=== PATIENT | female | born 2000 | race Caucasian/White ===

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

== ENCOUNTER 2022-04-27 12:18 | Emergency (ER) | payer OTHER, SELFPAY ==
--- NOTE | ~2022-04-27 | XR_ITS ---
EXAMINATION: XR knee LT min 4V DATE: 04/27/2022 12:40 INDICATION: Left knee pain TECHNIQUE: Four views of the left knee were obtained. COMPARISON: None. FINDINGS: Alignment is normal. No fracture or osteochondral lesion. Joint spaces are normal with no e rosions. No joint effusion/synovitis. Soft tissues are unremarkable. IMPRESSION: 1. No acute osseous abnormality. Reviewed, dictated and finalized at location L.
[2022-04-27 12:26] VITALS: BP 130/82; PULSE 73; RESP 16; TEMP 36.8; O2SAT 99
--- NOTE | 2022-04-27 12:56 | ED.LOWEXIN ---
HPI - Extremity Injury (Lower) General Chief Complaint: Extremity Injury, Lower Stated Complaint: left knee injury Time Seen by Provider: 04/27/22 12:56 Source: patient Mode of arrival: ambulatory Limitations: no limitations History of Present Illness HPI Narrative: 22 yo F presents with c/o pain to L knee. States yesterday she was walking down cement stairs that were slick from rain. L knee went backwards causing pt to fall. Since then has not been able to bear full weight on L leg. Walking with limp. States pain to medial aspect with swelling. ROM decreased due to pain. All systems reviewed and negative except as noted above. Related Data Allergies Allergy/AdvReac Type Severity Reaction Status Date / Time No Known Allergies Allergy Verified 08/05/19 17:41 Review of Systems Review of Systems: CONSTITUTIONAL: Denies fever, chills, or sweats. EYES: Denies visual changes, redness, or discharge. ENT: Denies rhinorrhea, congestion, sore throat, or otalgia. CARDIOVASCULAR: Denies chest pain, palpitations, or edema. RESPIRATORY: Denies cough or dyspnea. GASTROINTESTINAL: Denies abdominal pain, nausea, vomiting, or diarrhea. GENITOURINARY: Denies dysuria or hematuria. SKIN: Denies rash or itching. MUSCULOSKELETAL: Reports left knee pain and swelling. NEUROLOGIC: Denies headache, numbness, or weakness. PSYCHIATRIC: Denies anxiety or depression. All other systems reviewed are negative, except as documented in HPI. PMFSH Comments At time of signature, agree with nursing past medical, surgical, social and family history. There is no relevant family history pertinent to the presenting complaint. Exam Narrative: GENERAL: This is a well-nourished, well-developed patient, in no apparent distress. HEAD: normocephalic, atraumatic. EYES: PERRL. Sclera clear/white. Vision is grossly intact. EARS: External ears normal NOSE: External nose normal NECK: Neck supple, non-tender without lymphadenopathy, masses or thyromegaly. CARDIOVASCULAR: Regular rate and rhythm without murmurs, gallops, or rubs. RESPIRATORY: Clear to auscultation. Breath sounds equal bilaterally. No wheezes, rales, or rhonchi. SKIN: warm, Dry, intact with no suspicious lesions or rash, good texture and turgor. NEURO: awake, alert, and oriented to person, place and time. There were no obvious focal neurologic abnormalities. EXTREMITIES: No joint tenderness, effusion, or edema noted. tenderness to medial aspect L knee. mild swelling noted. neg anterior/posterior drawer. no instability noted. BACK: Nontender without deformity. Course Course Level of Care: Express Care Visit Vital Signs Vital signs: Vital Signs Temperature 36.8 C 04/27/22 12:26 Pulse Rate 73 04/27/22 12:26 Respiratory Rate 16 04/27/22 12:26 Blood Pressure 130/82 04/27/22 12:26 Pulse Oximetry 99 04/27/22 12:26 Oxygen Delivery Room Air 04/27/22 12:26 Temperature 36.8 C 04/27/22 12:26 Pulse Rate 73 04/27/22 12:26 Respiratory Rate 16 04/27/22 12:26 Blood Pressure 130/82 04/27/22 12:26 Pulse Oximetry 99 04/27/22 12:26 Oxygen Delivery Room Air 04/27/22 12:26 Reviewed MDM - Extremity Injury (Lower) MDM Narrative Medical decision making narrative: Patient is aware of diagnosis, understands and agrees to treatment plan. Anticipatory guidance given. Patient agrees to follow-up as directed and is aware of reasons to seek care at the emergency department. Portions of this record may have been created with voice recognition software discussed xray results with pt. neg for fracture. recommend follow up with PCP in 2 to 3 wks if pain not improving for further evaluation with outpatient imaging. Differential Diagnosis Differential diagnosis: Likely acute internal derangement of knee and other (Left knee sprain) Imaging Data My impression: agree with radiologist Radiologist's impression: EXAMINATION: XR knee LT min 4V DATE: 04/27/2022 12:40 INDICATION: Le
== END 2022-04-27 13:18 | disposition home or self-care (01) ==
PROVIDERS: Emergency Provider Nurse Practitioner Family; PCP Pediatrics
DX: S83.92XA Sprain of unspecified site of left knee, initial encounter (principal); W10.9XXA Fall (on) (from) unspecified stairs and steps, initial encounter
CPT/HCPCS: 73564; 99213; G0463

== ENCOUNTER 2025-08-03 08:30 | Emergency (ER) | payer OTHER, SELFPAY ==
--- NOTE | 2025-08-03 08:44 | ED_ITS ---
HPI - URI/Sore Throat General Chief Complaint: Upper Respiratory Infection Stated Complaint: Throat Hurting Time Seen by Provider: 08/03/25 08:47 Source: patient, RN notes reviewed and old records reviewed Mode of arrival: ambulatory Limitations: no limitations History of Present Illness HPI Narrative: 25 year old female who presents to [facility] care with complaints of sore throat which hurts to swallow for the past 2 days.Patient reports that she did take some Ibuprofen when symptoms first started. Patient reports that she has had history of strep throat in the past. Patient denies any ear pain, cough or any known fevers or chills. Is able to swallow fluids but eating of solids has been difficult due to pain. MD elicited complaint: cough and sore throat Pertinent past history: other (strep throat) Onset (ago): day(s) (2) Severity: moderate Pain scale (0-10): 8 Able to tolerate fluids by mouth: Yes Treatments prior to arrival: ibuprofen Related Data Allergies Allergy/AdvReac Type Severity Reaction Status Date / Time No Known Allergies Allergy Verified 08/03/25 08:45 Review of Systems Review of Systems: CONSTITUTIONAL: Denies malaise, chills, sweats, or fever. EYES: Denies visual changes, redness, or discharge. ENT: Reports no rhinorrhea, congestion, sinus pain, no otalgia and positive sore throat. CARDIOVASCULAR: Denies chest pain, palpitations, or edema. RESPIRATORY: Reports no cough.? Denies dyspnea. GASTROINTESTINAL: Denies abdominal pain, nausea, vomiting, diarrhea SKIN: Denies rash or itching. MUSCULOSKELETAL: Denies myalgia. NEUROLOGIC: Denies headache. All systems reviewed & are unremarkable except as noted in HPI and below PMFSH Past Medical History Medical History Strep throat Surgical History Surgical History No history of previous surgery Social History Social History Smoking status: Never smoker Alcohol intake: current Alcohol use details: social Substance use type: does not use Living arrangements: with family Gender identity (if verbalized by the patient): Female Comments At time of signature, agree with nursing past medical, surgical, social and family history. There is no relevant family history pertinent to the presenting complaint Exam Narrative: GENERAL: Well-appearing, well-nourished, and in no acute distress. HEAD: Normocephalic EYES: PERRLA, conjunctivae clear ENT: Nares clear, turbinates edematous and erythematous, clear discharge. Mucous membranes moist. TM pearly zendejas with dull light reflex bilaterally; no tragal tenderness. Oropharynx erythematous without lesions. Tonsils red and enlarged and without exudate, no drooling, no hoarseness, no trismus, uvula midline. NECK: Supple. positive for lymphadenopathy CHEST: Clear to auscultation, breath sounds equal. No wheezing, rhonchi, rales, or stridor. No respiratory distress, speaks in full sentences. no cough noted SAO2 98% on room air HEART: Regular rate and rhythm. No murmur heard. SKIN: Warm, dry, no rash. NEURO: Alert and oriented x3. PSYCH: Normal mood and affect Course Course Emergency Course: Patient is aware of diagnosis, understands and agrees to treatment plan.? Anticipatory guidance given.? Patient agrees to follow-up as directed and is aware of reasons to seek care at the emergency department. Portions of this record may have been created with voice recognition software Level of Care: Express Care Visit Vital Signs Vital signs: Vital Signs Temperature 36.3 C L 08/03/25 08:45 Pulse Rate 104 H 08/03/25 08:45 Respiratory Rate 18 08/03/25 08:45 Blood Pressure 143/79 H 08/03/25 08:45 Pulse Oximetry 98 08/03/25 08:45 Oxygen Delivery Room Air 08/03/25 08:45 Temperature 36.3 C L 08/03/25 08:45 Pulse Rate 104 H 08/03/25 08:45 Respiratory Rate 18 08/03/25 08:45 Blood Pressure 143/79 H 08/03/25 08:45 Pulse Oximetry 98 08/03/25 08:45 Oxygen Delivery Room Air 08/03/25 08:45 Reviewed MDM - URI/Sore Throat MDM Narrative Medical decision making narrative: Differential diagnosis considered: Payne virus, strep pharyngitis, allergic rhinitis, upper respiratory tract infection, sinusitis, rhinosinusitis, nasopharyngitis. viral pharyngitis, otitis media, otitis externa, pneumonia, bronchitis, viral cough syndrome, viral syndrome, and influenza.? Exam findings show no acute concerns or changes; patient is non-toxic appearing and is in no distress.? Patient is appropriate for outpatient treatment and follow-up. Differential Diagnosis Differential diagnosis: Likely upper respiratory infection, sinusitis, viral infection, pharyngitis and other (strep pharyngitis) Medical Records Attestation: I reviewed the patient's medical records. Lab Data Attestation: I reviewed the patient's lab results. Lab results narrative: strep screen positive Labs: Lab Results 08/03/25 Range/Units 08:51 POC Grp A Strep Screen Positive (Negative) reviewed Critical Care Time Critical Care Time Critical Care Time: No Discharge Plan Discharge Clinical Impression: Strep throat Patient Disposition: Home Condition: Stable Instructions: Antibiotic Form, Strep Throat (ED) Additional Instructions: You tested positive for Group A strep . Take the entire course of antibiotics. Throw away your current toothbrush and begin using a new toothbrush in 48 hours in order to prevent re-infection. Sanitize all reusable water bottles . Do not share items with others. Salt water gargles may alleviate some of the throat discomfort. You can take Tylenol or ibuprofen per the package instructions for pain/fever. If your symptoms persist, change or worsen significantly before you can contact your personal physician then please, without delay, go to the emergency department for further evaluation. Follow-up with PCP in 7-10 days or sooner if needed Follow up with PCP soon in regards to your blood pressure which is elevated above threshold for referral. Blood pressure above 120/80 may indicate pre-hypertension. 143/79 Patient Language: Syriac Prescriptions: New amoxicillin 500 mg capsule 1,000 mg PO Q12H 10 Days Qty: 40 0RF Follow-up/Referrals: PHYSICIAN,WINDOW CLEANER [Primary Care Provider, Internal Medicine] Stand Alone Forms: Work/School Release IP Time of Disposition: 08:59 Quality [place]vinson Coma Scale Eyes: Open Verbal: Oriented and Alert Motor: Follows Commands Robby Coma Total Score: 15
[2025-08-03 08:45] VITALS: BP 143/79; PULSE 104; RESP 18; TEMP 36.3; O2SAT 98
[2025-08-03 08:52] LABS: EDSTREPNEGPOS1 Positive (Negative)
--- OUTSIDE RECORDS SUMMARY | 2025-08-03 08:53 | XMS_ITS | Clinical Summary ---
Author Organization [facility] Address [address] [place] [address] Phone Care Team Providers Care Eeg Technologist Name Role Phone Fatou Starks MD Primary Care Provider Allergies No known active allergies Medications No known medications Social History Tobacco Use Types Packs/Day Years Used Date Smoking Tobacco: Never Smokeless Tobacco: Never Alcohol Use Standard Drinks/Week Comments No 0 (1 standard drink = 0.6 oz pur e alcohol) Comments No Sex and Gender Information Value Date Recorded Sex Assigned at Not on file Legal Sex Female 8:39 PM CDT Gender Identity Not on file Sexual Orientation Not on file Last Filed Vital Signs Vital Sign Reading Time Taken Comments Blood Pressure 154/84 02/28/2018 8:58 PM CDT Pulse 92 02/28/2018 8:58 PM CDT Temperature 37.1 C (98.8 F) 02/28/2018 8:58 PM CDT Respiratory Rate 16 02/28/2018 8:58 PM CDT Oxygen Saturation 99% 02/28/2018 8:58 PM CDT Inhaled Oxygen Concentration - - Weight - - Height 162.6 cm (5' 4) 02/28/2018 8:58 PM CDT Body Mass Index - - Plan of Treatment Upcoming Encounters Date Type Department Care Team (Late st Contact Info) Description 08/12/2025 1:30 PM ANIMAL HUSBANDRY MANAGER Office Visit [facility] - Cardiology - [place] [address] [place] [address] Charisma Bueno, ASSOCIATE MATERIAL HANDLER, [employer]AY [employer]IT [employer] [address] [place] [address] 10/04/2025 3:00 PM ANIMAL HUSBANDRY MANAGER Office Visit [facility] - Pulmonology & Sleep Medicine - [place] [address] [place] [address] Orin Fletcher APRN, [employer] [address] [place] [address] Insurance MEDICAID [facility] [facility] Care Teams Eeg Technologist Relationship Specialty Start Date End Date Fatou Starks MD [address] [place] [address] PCP - General General Surgery 07/22/25
--- OUTSIDE RECORDS SUMMARY | 2025-08-03 08:53 | XMS_ITS | Clinical Summary ---
Author Organization [facility] Address [address] [place] [address] Care Team Providers Care Direct Support Staff Member Name Role Phone Nay Sahu MD Primary Care Provider [phone] Allergies No known active allergies Medications lidocaine viscous (XYLOCAINE) 2 % solution Take 10 mL by mouth every 3 (three) hours 10 mL 05/03/2021 Active traMADoL (ULTRAM) 50 mg tablet Take 1 tablet (50 mg total) by mouth every 4 (four) hours as needed for pain 20 tablet 05/03/2021 Active Active Problems No known active problems Encounters Date Type Department Care Team Description 06/29/2025 9:34 AM CDT - 06/29/2025 11:59 PM CDT Hospital Encounter [facility] [address] [place] [id number] Morbid (severe) obesity due to excess calories (HCC) Discharge Disposition: Discharge to home or self care 06/29/2025 9:29 AM CDT - 06/29/2025 11:59 PM CDT Hospital Encounter [facility] [address] [place] [id number] Morbid (severe) obesity due to excess calories (HCC) Discharge Disposition: Discharge to home or self care 06/29/2025 9:25 AM CDT Lab [address] [address] from Last 3 Months Surgical History Surgery Date Site/Laterality Comments NO PAST SURGERIES Medical History Medical History Date Comments Obesity Marijuana use Social History Tobacco Use Types Packs/Day Years Used Date Smoking Tobacco: Never Smokeless Tobacco: Never Tobacco Cessation:Counseling Given: Not Answered Comments No Sex and Gender Information Value Date Recorded Sex Assigned at Not on file Legal Sex Female 11:40 AM CLASSROOM AIDE Gender Identity Not on file Sexual Orientation Not on file Last Filed Vital Signs Vital Sign Reading Time Taken Comments Blood Pressure 143/86 08/19/2022 9:29 PM CLASSROOM AIDE Pulse 113 08/19/2022 9:29 PM CLASSROOM AIDE Temperature 37 C (98.6 F) 08/19/2022 9:29 PM CLASSROOM AIDE Respiratory Rate 19 08/19/2022 9:29 PM CLASSROOM AIDE Oxygen Saturation 98% 08/19/2022 9:29 PM CLASSROOM AIDE Inhaled Oxygen Concentration - - Weight 111.6 kg (246 lb) 08/19/2022 9:29 PM CLASSROOM AIDE Height 162.6 cm (5' 4) 08/19/2022 9:29 PM CLASSROOM AIDE Body Mass Index 42.23 08/19/2022 9:29 PM CLASSROOM AIDE Plan of Treatment Health Maintenance Due Date Last Done Comments Cervical Cancer Screening 2002 Depression Screening 2002 Hepatitis C Screening 2002 Regular Well Visit/Exam 18-64 02/21/2020 Influenza Vaccine (#1) 2025 8, 07/03/2017, 10/03/2016, Additional history exists DTaP/Tdap/Td Vaccine (8 - Td or Tdap) 03/04/2026 03/04/2016, 03/10/2012, 06/04/2007, Additional history exists Hepatitis B Screening Completed 2002 , 2002, 2002 Pneumococcal vaccine <65 Completed 004, 03/12/2003, 2002, Additional history exists Varicella Vaccines Completed 06/04/2007, 10/07/2003 HPV Vaccines Completed 03/10/2012, 0805/2011, 03/01/2011 Meningococcal B Vaccine Completed 11/14/2018, 10/03 Procedures Procedure Name Priority Date/Time Associated Diagnosis Comments XR CHEST PA LATERAL 2 VIEWS Schedule Routine, Read Routine (OP Routine) 06/29/2025 10:17 AM CDT Morbid (severe) obesity due to excess calories (HCC) ECG 12-LEAD Routine 06/29/2025 10:07 AM CDT Morbid (severe) obesity due to excess calories (HCC) EGFR Routine 06/29/2025 9:46 AM CDT DIFFERENTIAL AUTO Routine 06/29/2025 9:4 6 AM CDT TRANSFERRIN Routine 06/29/2025 9:46 AM CDT IRON PROFILE W/ IBC Routine 06/29/2025 9 :46 AM CDT APTT Routine 06/29/2025 9:46 AM CDT PROTIME-INR Routine 06/29/2025 9:46 AM CDT PTH Routine 06/29/2025 9:46 AM CDT TSH Routine 06/29/2025 9:46 AM CDT VITAMIN B1 Routine 06/29/2025 9:46 AM CDT FOLATE Routine 06/29/2025 9:46 AM CDT VITAMIN B12 Routine 06/29/2025 9:46 AM CDT VITAMIN D 25 HYDROXY Routine 06/29/2025 9:46 AM CDT MAGNESIUM Routine 06/29/2025 9:46 AM CDT LIPID PANEL Routine 06/29/2025 9:46 AM CDT HEMOGLOBIN A1C Routine 06/29/2025 9:46 AM CDT FERRITIN Routine 06/29/2025 9:46 AM CDT COMPREHENSIVE METABOLIC PANEL Routine 06/29/2025 9:46 AM CDT CBC WITH AUTO DIFFERENTIAL Routine 06/29/2025 9:46 AM CDT from Last 3 Months Results * XR Chest PA Lateral 2 Views (06/29/2025 10:17 AM CDT) Anatomical Region Laterality Modality Body, Chest N/A Computed Radiogr aphy 07/03/2025 3:23 AM CDT Narrative 07/03/2025 3:24 AM CDT EXAM DESCRIPTION: XR CHEST PA LATERAL 2 VIEWS REASON FOR STUDY: E66. Pre op for gastric sleeve surgery Htn - not medicated former smoker Intermittent chest pain TECHNIQUE: Frontal and lateral radiographic views of the chest acquired. COMPARISON: Chest x-ray of December 19, 2022. FINDINGS: LUNGS/PLEURA: No focal consolidation or pneumothorax. No pleural effusion. HEART/MEDIASTINUM: Cardiac silhouette is normal. Remaining mediastinal silhouettes are unremarkable. HARDWARE/LINES/TUBES: None. BONES: No acute findings. IMPRESSION: No acute cardiopulmonary abnormality. THIS IS AN ELECTRONICALLY VERIFIED FINAL REPORT 07/03/2025 3:24 AM - Electronically signed by Savi Barrios M.D. SN: SN Report ID: [id number] Reading Location: [id number] Procedure Note Savi Barrios MD - 07/03/2025 EXAM DESCRIPTION: XR CHEST PA LATERAL 2 VIEWS REASON FOR STUDY: E66.01 Pre op for gastric sleeve surgery Htn - not medicated former smoker Intermittent chest pain TECHNIQUE: Frontal and lateral radiographic views of the chest acquired. COMPARISON: Chest x-ray of December 19, 2022. FINDINGS: LUNGS/PLEURA: No focal consolidation or pneumothorax. No pleuraleffusion. HEART/MEDIASTINUM: Cardiac silhouette is normal. Remaining mediastinal silhouettes are unremarkable. HARDWARE/LINES/TUBES: None. BONES: No acute findings. IMPRESSION: No acute cardiopulmonary abnormality. THIS IS AN ELECTRONICALLY VERIFIED FINAL REPORT 07/03/2025 3:24 AM - Electronically signed by Savi Barrios M.D. SN: SN Report ID: [id number] Reading Location: [id number] [facility] WALLPAPERER IMG XR PROCEDURES Final Resul t * ECG 12 lead (06/29/2025 10:07 AM CDT) 06/29/2025 10:0 4 AM CDT Narrative [facility] - 06/29/2025 12:02 PM CDT Vent Rate: 77 bpm RR Interval: 775 msec OR Interval: 167 msec QRS Duration: 86 msec QT Interval: 395 msec QTC Interval: 427 msec P-R-T [place]: 37 - 32 - 38 degrees IMPRESSION: SINUS RHYTHM WITH FREQUENT VENTRICULAR PREMATURE COMPLEXES ABNORMAL RHYTHM ECG Compared to prior EKG premature ventricular ectopic beats are new Electronically Signed By: Alvarado Florentino MD [facility] us My [facility] NP ECG ORDERABLES Final Result Performing Organization Address [facility] Co de Phone Number [facility] * eGFR (06/29/2025 9:46 AM CDT) eGFR >90 >=60 mL/min/1. 73 m2 Comment: Interpretive Data Reference Interval Normal >/= 90 mL/min/1.73m2 Mildly decreased* 60 - 89 mL/min/1.73m2 Mildly to moderately decreased 45 - 59 mL/min/1.73m2 Moderately to severely decreased 30 - 44 mL/min/1.73m2 Severely decreased 15 - 29 mL/min/1.73m2 Kidney Failure < 15 mL/min/1.73m2 *Relative to young adult level Estimated glomerular filtration rate is determined by the 2020 CKD-EPI equation recommended by the National Kidney Foundation (A Unifying Approach to GFR Estimation: Recommendations of the NKF-ASK Task Force on Reassessing the Inclusion of Race in Diagnosing Kidney Disease, JASN 2020). The CKD-EPI equation should not be used for patients with unstable renal function and has not been validated in children and those over 70. Current interpretive data was last reviewed 2021. Blood 06/29/2025 9:46 AM CDT 06/29/2025 10:20 AM CDT us My [facility] NP LAB BLOOD ORDERABLES Final Re sult Performing Organization Address City/[facility] Co de Phone Number MARIUSZ RUBIO ([place]) 1 [facility] [place] [address] * (ABNORMAL) Differential, auto (06/29/2025 9:46 AM CDT) Neutrophil abs 4.05 1.50 - 6.50 K/cumm Imm gran abs 0.01 0.00 - 0.10 K/cumm [facility] ([place]) Lymphocyte abs 4.86(H) 0.80 - 3.30 K/cumm [facility] ([place]) Monocyte abs 0.61 0.20 - 0.80 K/cumm [facility] ([place]) Eosinophil abs 0.22 0.00 - 0.50 K/cumm [facility] ([place]) Basophil abs 0.03 0.00 - 0.10 K/cumm [facility] ([place]) Neutrophil pct 41.5 % [facility] ([place]) Comment: Interpretive Data Percent cell count reference ranges are not reported, since discordance with absolute values may lead to misinterpretation of CBC data. Current Interpretive Data was last revised on 2018. Imm gran pct 0.1 % [facility] ([place]) Comment: Interpretive Data Percent cell count reference ranges are not reported, since discordance with absolute values may lead to misinterpretation of CBC data. Current Interpretive Data was last revised on 2018. Lymphocyte pct 49.7 % [facility] ([place]) Comment: Interpretive Data Percent cell count reference ranges are not reported, since discordance with absolute values may lead to misinterpretation of CBC data. Current Interpretive Data was last revised on 2018. Monocyte pct 6.2 % [facility] ([place]) Comment: Interpretive Data Percent cell count reference ranges are not reported, since discordance with absolute values may lead to misinterpretation of CBC data. Current Interpretive Data was last revised on 2018. Eosinophil pct 2.2 % [facility] ([place]) Comment: Interpretive Data Percent cell count reference ranges are not reported, since discordance with absolute values may lead to misinterpretation of CBC data. Current Interpretive Data was last revised on 2018. Basophil pct 0.3 % [facility] ([place]) Comment: Interpretive Data Percent cell count reference ranges are not reported, since discordance with absolute values may lead to misinterpretation of CBC data. Current Interpretive Data was last revised on 2018. Blood 06/29/2025 9:46 AM CDT 06/29/2025 10:20 AM CDT us My [facility] WALLPAPERER LAB BLOOD ORDERABLES Final Re sult Performing Organization Address [facility] Co de Phone Number MARIUSZ RUBIO ([place]) [address] [place] [address] * (ABNORMAL) Iron profile w/ IBC (06/29/2025 9:46 AM CDT) Pathologist [facility] Iron 29(L) 35 - 145 mcg/dL [facility] ([place]) TIBC 306 250 - 400 mcg/dL [facility] ([place]) Transferrin saturation 9(L) 20 - 50 % [facility] ([place]) Blood 06/29/2025 9:46 AM CDT 06/29/2025 10:20 AM CDT us My [facility] WALLPAPERER LAB BLOOD ORDERABLES Final Re sult Performing Organization Address [facility] de Phone Number MARIUSZ RUBIO ([place]) [address] [place] [address] * CBC with auto differential (06/29/2025 9:46 AM CDT) Pathologist [facility] WBC 9.78 3.80 - 9.90 K/cumm Hgb 13.2 11.9 - 15.5 g/dL [facility] ([place]) Hct 39.8 35.6 - 45.5 % [facility] ([place]) Plt 293 150 - 400 K/cumm [facility] ([place]) MPV 9.6 9.1 - 12.3 fL [facility] ([place]) RBC 4.63 3.90 - 5.20 M/cumm [facility] ([place]) MCV 86.0 81.3 - 96.4 fL [facility] ([place]) MCH 28.5 27.1 - 33.3 pg [facility] RUBIO ([place]) MCHC 33.2 32.3 - 35.7 g/dL [facility] RUBIO ([place]) RDW CV 12.8 11.1 - 14.9 % [facility] RUBIO ([place]) RDW SD 40.2 35.7 - 48.1 fL [facility] RUBIO ([place]) NRBC abs 0.00 0.00 - 0.01 K/cumm [facility] RUBIO ([place]) Blood 06/29/2025 9:46 AM CDT 06/29/2025 10:20 AM CDT us [facility] WALLPAPERER LAB BLOOD ORDERABLES Final Re sult MARI[facility]Z RUBIO ([place]) 1 [facility] [place] [employer] [place] [address] * (ABNORMAL) Vitamin D 25 hydroxy (06/29/2025 9:46 AM CDT) Vitamin D 25-OH 10(L) 30 - 80 ng/mL [facility] RUBIO ([place]) Blood 06/29/2025 9:46 AM CDT 06/29/2025 10:20 AM CDT us [facility] WALLPAPERER LAB BLOOD ORDERABLES Final Re sult Performing Organization Address City/[facility]/ZIP Co de Phone Number MARIUSZ RUBIO ([place]) 1 [facility] [place] [address] * aPTT (06/29/2025 9:46 AM CDT) aPTT 30 26 - 38 sec MARI[facility] RUBIO ([place]) Comment: Interpretive Data Heparin therapeutic range: 66.0 - 100.0 seconds. Range based on correlation with therapeutic heparin activity range of 0.3 - 0.7 Units/mL. Current interpretive data was last revised on 2023. Blood 06/29/2025 9:46 AM CDT 06/29/2025 10:20 AM CDT us My [facility] WALLPAPERER LAB BLOOD ORDERABLES Final Re sult [place]Z [place] 1 [facility] [place] [employer] [place] [address] * Protime-INR (06/29/2025 9:46 AM CDT) PT 10.4 10.2 - 13.5 sec [facility] ([place]) INR 0.92 0.90 - 1.20 MARI[facility]Z [facility] ([place]) Comment: Interpretive data Oral anticoagulant therapeutic ranges: Venous thromboembolism prophylaxis or treatment: 2.0-3.0 CARDIOLOGY Standard range: 2.0-3.0 High-intensity range: 2.5-3.5 Refer to indication-specific guidelines for appropriate target ranges for prosthetic heart valve replacement. Current interpretive data was last revised on 2019. Blood 06/29/2025 9:46 AM CDT 06/29/2025 10:20 AM CDT us My [facility] WALLPAPERER LAB BLOOD ORDERABLES Final Re sult Performing Organization Address [facility] Co de Phone Number MARIUSZ RUBIO ([place]) 1 [facility] [employer] [place] [address] * Transferrin (06/29/2025 9:46 AM CDT) Transferrin 257 200 - 360 mg/dL Comment:Testing performed by : [facility], [address] [place] [address], [id number] Blood 06/29/2025 9:46 AM CDT 06/29/2025 4:58 PM CDT us My [facility] WALLPAPERER LAB BLOOD ORDERABLES Final Re sult Performing Organization Address City/[facility]/ZIP Co de Phone Number MARIUSZ RUBIO ([place]) 1 [facility] [employer] [place] [address] * TSH (06/29/2025 9:46 AM CDT) Thyroid Stimulating Hormone 1.67 0.30 - 4.20 mcIUnit/mL [facility] ([place]) Blood 06/29/2025 9:46 AM CDT 06/29/2025 10:20 AM CDT My [facility] WALLPAPERER LAB BLOOD ORDERABLES Final Re sult Performing Organization Address [facility]/ZIP Co de Phone Number MARIUSZ RUBIO ([place]) 1 [facility] [place] [address] * Vitamin B1 (06/29/2025 9:46 AM CDT) Pathologist [facility] Thiamine (Vit B1) 115 70 - 180 nmol/L [place] [facility] Comment: ADDITIONAL INFORMATION This test was developed and its performance characteristics determined by [facility] in a manner consistent with CLIA requirements. This test has not been cleared or approved by the U.S. Food and Drug Administration. Test Performed by: [facility] [place] [address] Grain Packer: Shlomo Lange Ph.D.; CLIA# [id number] Blood 06/29/2025 9:46 AM CDT 06/29/2025 10:20 AM CDT us My [facility] WALLPAPERER LAB BLOOD ORDERABLES Final Re sult Performing Organization Address [facility]/ZIP Co de Phone Number MARIUSZ RUBIO ([place]) 1 [facility] [employer] [place] [place] [address] [place] [facility] * (ABNORMAL) PTH (06/29/2025 9:46 AM CDT) PTH 64(H) 18 - 58 pg/mL [facility] ([place]) Blood 06/29/2025 9:46 AM CDT 06/29/2025 10:20 AM CDT us [facility] WALLPAPERER LAB BLOOD ORDERABLES Final Re sult MARI[facility] RUBIO ([place]) [address] [place] [address] * Magnesium (06/29/2025 9:46 AM CDT) Magnesium 2.2 1.4 - 2.5 mg/dL [facility] RUBIO ([place]) Blood 06/29/2025 9:46 AM CDT 06/29/2025 10:20 AM CDT us My [facility] WALLPAPERER LAB BLOOD ORDERABLES Final Re sult Performing Organization Address [facility] Co de Phone Number MRAIUSZ RUBIO ([place]) [address] [place] [address] * Hemoglobin A1c (06/29/2025 9:46 AM CDT) Hgb A1C 5.6 4.0 - 5.6 % [facility] ([place]) Estimated Average Glucose 114 mg/dL [facility] ([place]) Comment: The ADA recommends reporting an estimated Average Glucose (eAG) with all Hemoglobin A1c results using the equation derived from a study of 507 normal and diabetic adults. Minority populations were underrepresented and children were not included. (Diabetes Care 31:1570-1279, 2008). The eAG is not equivalent to a fasting glucose. Testing performed by: [facility], [address] [facility], [place], [address] Blood 06/29/2025 9:46 AM CDT 06/29/2025 10:20 AM CDT us My [facility] WALLPAPERER LAB BLOOD ORDERABLES Final Re sult MARI[facility] RUBIO ([place]) [address] [place] [address] * Folate (06/29/2025 9:46 AM CDT) Folic acid 9.4 >=5.0 ng/mL [facility] ([place]) Blood 06/29/2025 9:46 AM CDT 06/29/2025 10:20 AM CDT us [facility] WALLPAPERER LAB BLOOD ORDERABLES Final Re sult MARIUSZ RUBIO ([place]) 1 [facility] [place] [place] [address] * Ferritin (06/29/2025 9:46 AM CDT) Ferritin 27 13 - 150 ng/mL [facility] RUBIO ([place]) Blood 06/29/2025 9:46 AM CDT 06/29/2025 10:20 AM CDT us My [facility] WALLPAPERER LAB BLOOD ORDERABLES Final Re sult Performing Organization Address [facility]/ZIP Co de Phone Number MARIUSZ URBIO ([place]) 1 [facility] [place] [address] * Vitamin B12 (06/29/2025 9:46 AM CDT) Pathologist [facility] Vitamin B12 438 230 - 1,250 pg/mL MARI[facility]Z RUBIO ([place]) Blood 06/29/2025 9:46 AM CDT 06/29/2025 10:20 AM CDT us [facility] WALLPAPERER LAB BLOOD ORDERABLES Final Re sult MARIUSZ RUBIO ([place]) 1 [facility] [place] [address] * Lipid panel (06/29/2025 9:46 AM CDT) Pathologist [facility] Cholesterol 148 30 - 199 mg/dL MARIUSZ RUBIO ([place]) Comment: Interpretive Data Ages < or = 19 years Acceptable: <170 mg/dL Borderline high: 170-199 mg/dL High: >or= 200 mg/dL Ages > or = 20 years Desirable: <200 mg/dL Borderline high: 200-239 mg/dL High: >or= 240 mg/dL Literature References: 1. Expert Panel on Integrated Guidelines for Cardiovascular Health and Risk Reduction in Children and Adolescents. Pediatrics 2011;128:S213 2. NCEP Expert Panel. Circulation 2004;110:227 Current Interpretive Data was last revised on 2018. Triglycerides 126 <=149 mg/dL MARIUSZ WAGNER) Comment: Interpretive Data Ages < or = 9 years Acceptable: <75 mg/dL Borderline high: 75-99 mg/dL High: >or= 100 mg/dL Ages 10 to 20 years Acceptable: <90 mg/dL Borderline high: 90-129 mg/dL High: >or= 130 mg/dL Ages > or = 20 years Desirable: <150 mg/dL Borderline high: 150-199 mg/dL High: 200-499 mg/dL Very high: >or= 499 mg/dL Literature References: 1. Expert Panel on Integrated Guidelines for Cardiovascular Health and Risk Reduction in Children and Adolescents. Pediatrics 2011;128:S213 2. NCEP Expert Panel. Circulation 2004;110:227 Current Interpretive Data was last revised on 2018. HDL 44 >=40 mg/dL MARIUSZ WAGNER) Comment: Interpretive Data Ages < or = 19 years Acceptable: >45 mg/dL Borderline low: 40-45 mg/dL Low: <40 mg/dL Ages > or = 20 years Desirable: >or= 60 mg/dL Low: <40 mg/dL Literature References: 1. Expert Panel on Integrated Guidelines for Cardiovascular Health and Risk Reduction in Children and Adolescents. Pediatrics 2011;128:S213 2. NCEP Expert Panel. Circulation 2004;110:227 Current Interpretive Data was last revised on 2018. LDL, calculated 82 <=129 mg/dL MARIUSZ WAGNER) Comment: Interpretive Data Ages < or = 19 years Acceptable: <110 mg/dL Borderline high: 110-129 mg/dL High: >or= 130 mg/dL Ages > or = 20 years Optimal: <100 mg/dL Near optimal: 100-129 mg/dL Borderline high: 130-159 mg/dL High: >160 mg/dL Calculated using the Dubose LDL-C estimating equation. This equation was implemented on 2024. Prior to this date LDL-C was estimated using the Friedewald equation. Literature References: 1. Expert Panel on Integrated Guidelines for Cardiovascular Health and Risk Reduction in Children and Adolescents. Pediatrics 2011;128:S213 2. NCEP Expert Panel. Circulation 2004;110:227 3. Sedrick López al. LEO Cardiol. 2019January 28;5(5):540-548. doi: 10.1001/jamacardio.2020.0013 Current Interpretive Data was last revised on 2024. Testing performed by: [place], [address] Non-HDL Cholesterol 104 mg/dL MARIUSZ RUBIO ([place]) Comment: Interpretive Data Ages < or = 19 years Acceptable: <120 mg/dL Borderline high: 120-144 mg/dL High: >145 mg/dL Ages > or = 20 years When triglycerides are >200 mg/dL, Non-HDL cholesterol is a secondary target of therapy with treatment goals that are 30 mg/dL greater than the LDL cholesterol target. Literature References: 1. Expert Panel on Integrated Guidelines for Cardiovascular Health and Risk Reduction in Children and Adolescents. Pediatrics 2011;128:S213 2. NCEP Expert Panel. Circulation 2004;110:227 Current Interpretive Data was last revised on 2018. Testing performed by: [place], [address] Chol/HDL ratio 3 JOSSE RUBIO ([place]) Comment:Testing performed by : [place], [address] Blood 06/29/2025 9:46 AM CDT 06/29/2025 10:20 AM CDT us My [facility] NP LAB BLOOD ORDERABLES Final Re sult MARIUSZ RUBIO ([place]) 1 [facility] [place] [address] * Comprehensive metabolic panel (06/29/2025 9:46 AM CDT) Sodium 140 135 - 145 mmol/L MARIUSZ RUBIO ([place]) Potassium, pl 3.8 3.3 - 4.9 mmol/L [facility] ([place]) Chloride 104 97 - 110 mmol/L [facility] ([place]) CO2 26 22 - 32 mmol/L [facility] ([place] Anion gap 10 2 - 15 mmol/L [facility] ([place]) BUN 9 6 - 25 mg/dL [facility] ([place]) Creatinine 0.77 0.60 - 1.10 mg/dL [facility] ([place]) Glucose 88 70 - 199 mg/dL [facility] ([place]) Comment: Interpretive Data Fasting glucose >/= 126 mg/dl is diagnostic for diabetes. Fasting is defined as no caloric intake for at least 8 hours. Fasting glucose between 100 mg/dl to 125 mg/dl is diagnostic of prediabetes. In a patient with classic symptoms of hyperglycemia or hyperglycemic crisis, a random glucose >/= 200 mg/dl is diagnostic for diabetes. In the absence of unequivocal hyperglycemia, results should be confirmed by repeat testing. The classification and Diagnosis of Diabetes Diabetes Care 2021; 46: S19-S40. Current interpretive data was last revised 2022. Calcium 9.4 8.5 - 10.3 mg/dL [facility] ([place]) Bilirubin, total 0.4 0.1 - 1.2 mg/dL [facility] ([place]) Protein, pl 7.2 6.5 - 8.5 g/dL [facility] ([place]) Albumin 4.2 3.5 - 5.0 g/dL [facility] ([place]) Alk phos 82 40 - 130 Units/L [facility] ([place]) ALT 20 7 - 45 Units/L [facility] ([place]) AST 21 10 - 45 Units/L [facility] ([place]) Blood 06/29/2025 9:46 AM CDT 06/29/2025 10:20 AM CDT us [facility] WALLPAPERER LAB BLOOD ORDERABLES Final Re sult [facility] ([place]) 1 [facility] [place] [address] from Last 3 Months Insurance [employer] [facility] [employer] [facility] Care Teams Direct Support Staff Member Relationship Specialty Start Date End Date Nay Sahu MD [address] [place] [address] PCP - General 02/28/20
--- OUTSIDE RECORDS SUMMARY | 2025-08-03 08:53 | XMS_ITS | Encounter Summary ---
Author Organization [facility] Address [address] [place] [address] Care Team Providers Care Fractionating Still Operator Name Role Phone Nay Sahu MD Primary Care Provider [phone] Encounter Details Date Type Department Care Team (Late st Contact Info) Description 07/27/2025 Orders Only [facility] Weight Management Services [address] [place] [phone] My Hayes, INSIDE SALES SUPERVISOR-DRY WALL NAILER [address] [place] [address] Morbid obesity (HCC); Pre-op evaluation; EKG, abnormal Social History Tobacco Use Types Packs/Day Years Used Date Smoking Tobacco: Never Smokeless Tobacco: Never Alcohol Use Standard Drinks/Week Comments Yes 8 (1 standard drink = 0.6 oz pur e alcohol) weekly AUDIT-C Answer Date Recorded Q1: How often do you have a drink containing alcohol? Never 05/15/2023 Q2: How many drinks containi ng alcohol do you have on a typical day when you are drinking? Patient does not drink Q3: How often do you have si x or more drinks on one occasion? Never 05/15/2023 PHQ-2 Answer Date Recorded Patient Health Questionnaire-2 Score 0 07/27/2025 Comments Unknown Sex and Gender Information Value Date Recorded Sex Assigned at Not on file Legal Sex Female 11:58 AM LOOP TACKER Gender Identity Not on file Sexual Orientation Not on file documented as of this encounter Functional Status * Over the past 2 weeks, how often have you been bothered by any of the following problems? Question Answer Date of Assessment Author Little interest or pleasure in doing things Not at all 07/27/2025 8:36 AM CDT Samantha Delong L PN Feeling down, depressed, or hopeless Not at all 07/27/2025 8:36 AM CDT Samantha Delong L PN Patient Health Questionnaire -2 Score 0 07/27/2025 8:36 AM CDT Samantha Delong L PN documented as of this encounter Plan of Treatment Upcoming Encounters Date Type Department Care Team (Late st Contact Info) Description 08/10/2025 3:00 PM LOOP TACKER Office Visit [facility] Weight Management Services [address] [place] [facility] [place] [address] 08/11/2025 11:00 AM LOOP TACKER Office Visit [facility] Weight Management Services [address] [facility] [place] [address] Tita Mcdaniel, INSIDE SALES SUPERVISOR-DRY WALL NAILER [address] [place] [address] 08/11/2025 11:30 AM LOOP TACKER Office Visit [facility] Weight Management Services [address] [place] [facility] [place] [address] 09/22/2025 11:00 AM LOOP TACKER Office Visit [facility] Weight Management Services [address] [facility] [place] [address] 09/22/2025 11:30 AM LOOP TACKER Office Visit [facility] Weight Management Services [address] [facility] [place] [address] My Hayes, INSIDE SALES SUPERVISOR-DRY WALL NAILER [address] [place] [facility] [place] [place] [address] documented as of this encounter Procedures Procedure Name Priority Date/Time Associated Diagnosis Comments EKG 12-LEAD Routine 06/29/2025 Morbid obesity (HCC) Pre-op evaluation EKG, abnormal documented in this encounter Results * EKG 12-Lead (06/29/2025) 06/29/2025 us My Hayes INSIDE SALES SUPERVISOR-DRY WALL NAILER ECG ORDERABLES Final Re sult documented in this encounter Visit Diagnoses Diagnosis Morbid obesity (HCC) Morbid obesity Pre-op evaluation Preoperative examination, unspecified EKG, abnormal Nonspecific abnormal electrocardiogram (ECG) (EKG) documented in this encounter Care Teams Fractionating Still Operator Relationship Specialty Start Date End Date Nay Sahu MD [address] [place], [place] [phone] PCP - General Pediatrics 12/04/22 documented as of this encounter
--- OUTSIDE RECORDS SUMMARY | 2025-08-03 08:53 | XMS_ITS | Clinical Summary ---
Author Organization [facility] Address [address] [place] [address] Care Team Providers Care Board Stacker Name Role Phone Nay Sahu MD Primary Care Provider [phone] Source Comments [facility],non-[facility] Affiliates and Associated Physician Practices is amultiple site organization consisting of ambulatory clinics and hospital sitesin [place], [place], [place] and [place]. This disclosure is being madepursuant to the Care Everywhere program and may not contain all information available regarding this patient. Last updated 18.[facility] [employer] Allergies Active Allergy Reactions Criticality Noted Date Comments [place] Swelling 12/10/2022 Medications * Be aware that medications may not be up to date on this document. Alwaysverify current medications with the patient. vitamin D, ergocalciferol, (Drisdol) 1.25 MG (97338 UT) capsuleIndicati ons:Vitamin D Deficiency Take 1 (one) capsule by mouth every 7 days (once a week) Reasons: Vitamin D Deficiency 4 capsule 3 5 Active ferrous sulfate EC 325 (65 Fe) MG tabletIndicatio ns:Iron deficiency Take 1 (one) tablet by mouth once daily 90 tablet 5 Active ascorbic acid (Vitamin C) 500 MG tabletIndicatio ns:Iron deficiency Take 1 (one) tablet by mouth once daily 90 tablet 5 Active Active Problems No known active problems Encounters Date Type Department Care Team Description 07/27/2025 9:30 AM CDT Office Visit [facility] Weight Management Services [address] [place] [address] Morbid obesity (HCC) (Primary Dx) 07/27/2025 9:00 AM CDT Office Visit [facility] Health Weight Management Services [address] [place] [phone] Tita Mcdaniel APRN-CNP EKG, abnormal (Primary Dx); Morbid obesity (HCC); Iron deficiency; Pre-diabetes; History of vitamin D deficiency; 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) 07/27/2025 Telephone [facility] Weight Management Services [address] [place] [phone] Tita Mcdaniel APRN-CNP Referral (Cardiology referral) 07/27/2025 Orders Only [facility] Weight Management Services [address] [place] [phone] My Hayes APRN-CNP Morbid obesity (HCC); Pre-op evaluation; EKG, abnormal 07/15/2025 4:00 PM CDT Office Visit [facility] Weight Management Services [address] [place] [address] Morbid obesity (HCC) (Primary Dx) 07/06/2025 Orders Only [facility] Weight Management Services [address] [place] [phone] My Hayes APRN-CNP Morbid obesity (HCC); Pre-op evaluation; EKG, abnormal 07/05/2025 Telephone [facility] Weight Management Services [address] [place] [address] My Hayes APRN-CNP Results 07/05/2025 Orders Only [facility] Weight Management Services [address] [place] [phone] My Hayes APRN-CNP Morbid obesity (HCC); Pre-op evaluation; Pre-diabetes; History of vitamin D deficiency 07/02/2025 Telephone [facility] Weight Management Services [address] [place] [phone] Rachel Farfan, RD/LDN LABS ONLY 07/02/2025 Orders Only [facility] Weight Management Services [address] [place] [address] My Hayes APRN-CNP Vitamin D deficiency ; 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) 06/25/2025 Orders Only [facility] Weight Management Services [address] [place] [phone] Suzi Gallagher LPN At risk for sleep apnea 06/24/2025 1:00 PM CDT Office Visit [facility] Weight Management Services [address] [place] [address] Fatou Starks MD Morbid obesity due to excess calories (HCC) (Primary Dx) 06/24/2025 Orders Only [facility] Weight Management Services [address] [place] [phone] My Hayes APRN-CNP Morbid obesity (HCC) ; Pre-op evaluation; Pre-diabetes; EKG, abnormal; History of vitamin D deficiency 06/15/2025 Telephone [facility] Weight Management Services [address] [place] [phone] Fatou Starks MD Appointment from Last 3 Months Family History Medical History Relation Name Comments Diabetes; unknown type Maternal Grandmother Relation Name Status Comments Maternal Grandmother Social History Tobacco Use Types Packs/Day Years Used Date Smoking Tobacco: Never Smokeless Tobacco: Never Tobacco Cessation:Counseling Given: Not Answered Alcohol Use Standard Drinks/Week Comments Yes 8 [...] on file Legal Sex Female 11:58 AM PAPER CLEANER Gender Identity Not on file Sexual Orientation Not on file Last Filed Vital Signs Vital Sign Reading Time Taken Comments Blood Pressure 136/88 07/27/2025 8:00 AM CDT Pulse 87 07/27/2025 8:00 AM CDT Temperature 36.3 C (97.4 F) 07/27/2025 8:00 AM CDT Respiratory Rate 16 07/27/2025 8:00 AM CDT Oxygen Saturation 99% 07/27/2025 8:00 AM CDT Inhaled Oxygen Concentration - - Weight 117.7 kg (259 lb 8 oz) 07/27/2025 8:56 AM CDT Height 163.8 cm (5' 4.49) 07/27/2025 8:56 AM CD T Body Mass Index 43.87 07/27/2025 8:56 AM CDT Plan of Treatment Upcoming Encounters Date Type Department Care Team (Late st Contact Info) Description 08/10/2025 3:00 PM PAPER CLEANER Office Visit [facility] Weight Management Services [address] [place] [address] 08/11/2025 11:00 AM PAPER CLEANER Office Visit [facility] Weight Management Services [address] [place] [address] Tita Mcdaniel, HOUSE FURNISHINGS SUPERVISOR-INSURANCE BILLER [address] [place] [address] 08/11/2025 11:30 AM PAPER CLEANER Office Visit [facility] Weight Management Services [address] [place] [address] 09/22/2025 11:00 AM PAPER CLEANER Office Visit [facility] Weight Management Services [address] [place] [address] 09/22/2025 11:30 AM PAPER CLEANER Office Visit [facility] Weight Management Services [address] [place] [facility] [place] [address] My Hayes, HOUSE FURNISHINGS SUPERVISOR-INSURANCE BILLER [address] [place] [address] Health Maintenance Due Date Last Done Comments HIV SCREENING 2017 HPV VACCINE (1 - 3-dose series) 2017 CHLAMYDIA/GONORRHEA SCREENING 2018 MENINGOCOCCAL (Group B) VACC INE SHARED DECISION-MAKING (1 of 2 - Standard) 2018 HEPATITIS C SCREENING 02/16/2020 DTAP/TDAP/TD VACCINES (1 - Tdap) 2021 HEPATITIS B VACCINE (1 of 3 - 19+ 3-dose series) 2021 PAP SMEAR 2023 COVID-19 VACCINE (1 - 2023-2 5 season) 2025 INFLUENZA VACCINE (#1) 2025 ZOSTER VACCINE (1 of 2) 02/21/2052 DEPRESSION SCREENING Completed 06/24/2025 HIB VACCINE Aged Out No longer eligi ble based on patient's age to complete this topic MENINGOCOCCAL GROUPS A/C/Y/W VACCINE Aged Out No longer eligible b ased on patient's age to complete this topic PNEUMOCOCCAL VACCINE Aged Out No long er eligible based on patient's age to complete this topic Procedures Procedure Name Priority Date/Time Associated Diagnosis Comments EKG 12-LEAD Routine 06/29/2025 Morbid obesity (HCC) Pre-op evaluation EKG, abnormal VITAMIN D 25-HYDROXY Routine 06/29/2025 Morbid obesity ([facility]) Pre-op evaluation History of vitamin D deficiency TSH Routine 06/29/2025 Morbid obesity ([facility]) Pre-op evaluation LIPID PROFILE Routine 06/29/2025 Morbid obesity ([facility]) Pre-op evaluation Pre-diabetes COMPREHENSIVE METABOLIC PANEL Routine 06/29/2025 Morbid obesity ([facility]) Pre-op evaluation Pre-diabetes VITAMIN B1 Routine 06/29/2025 Morbid obesity ([facility]) Pre-op evaluation PTH INTACT+CALCIUM Routine 06/29/2025 Morbid obesity ([facility]) Pre-op evaluation History of vitamin D deficiency PT PTT PANEL Routine 06/29/2025 Morbid obesity ([facility]) Pre-op evaluation IRON + TRANSFERRIN PANEL Routine 06/29/2025 Morbid obesity (HCC) Pre-op evaluation CBC W AUTO DIFFERENTIAL Routine 06/29/2025 Morbid obesity (HCC) Pre-op evaluation HEMOGLOBIN A1C Routine 06/29/2025 Morbid obesity (HCC) Pre-op evaluation Pre-diabetes XR CHEST 2VW Routine 06/29/2025 Morbid obesity (HCC) Pre-op evaluation EKG, abnormal from Last 3 Months Results * PTH INTACT+CALCIUM (06/29/2025) Blood BLOOD SPECIMEN / Unknown 06/29/2025 My Hayes [facility] - CHEMISTRY ORDERABL ES Final Result Performing Organization Address [facility]/ZIP Co de Phone Number OTHER LAB * VITAMIN B1 (06/29/2025) Blood BLOOD SPECIMEN / Unknown 06/29/2025 [facility] Hayes [facility] ORDER[facility] ES Final Result Performing Organization Address [facility]/ZIP Co de Phone Number OTHER LAB * HEMOGLOBIN A1C (06/29/2025) Blood BLOOD SPECIMEN / Unknown 06/29/2025 My Hayes HOUSE FURNISHINGS [facility] - CHEMISTRY ORDERABL ES Final Result Performing Organization Address City/[facility]/ZIP Co de Phone Number OTHER LAB * VITAMIN D 25-HYDROXY (06/29/2025) Blood BLOOD SPECIMEN / Unknown 06/29/2025 My Hayes [facility]URNISHINGS [facility] - CHEMISTRY ORDERABL ES Final Result Performing Organization Address City/[facility]/ZIP Co de Phone Number OTHER LAB * PT PTT PANEL (06/29/2025) Blood BLOOD SPECIMEN / Unknown 06/29/2025 My R Freddy [facility] CO[facility] ORDERA BLES Final Result Performing Organization Address [facility]/ZIP Co de Phone Number OTHER LAB * CBC WITH DIFFERENTIAL (06/29/2025) Blood BLOOD SPECIMEN / Unknown 06/29/2025 My R Freddy [facility]URNISHINGS [facility] - HEMATOLOGY ORDERAB LES Final Result Performing Organization Address [facility]/[place] Co de Phone Number OTHER LAB * COMPREHENSIVE METABOLIC PANEL (06/29/2025) Blood BLOOD SPECIMEN / Unknown 06/29/2025 My Hayes [facility] - CHEMISTRY ORDERABL ES Final Result Performing Organization Address [facility]/ZIP Co de Phone Number OTHER LAB * TSH (06/29/2025) Blood BLOOD SPECIMEN / Unknown 06/29/2025 yM Hayes [facility] CHEMISTRY ORDERABL ES Final Result Performing Organization Address City/[facility]/ZIP Co de Phone Number OTHER LAB * IRON + TRANSFERRIN PANEL (06/29/2025) Blood BLOOD SPECIMEN / Unknown 06/29/2025 My Hayes HOUSE FURNISHINGS SUPERVISOR-[facility] - CHEMISTRY ORDERABL ES Final Result Performing Organization Address City/[facility]/ZIP Co de Phone Number OTHER LAB * LIPID PROFILE (06/29/2025) Blood BLOOD SPECIMEN / Unknown 06/29/2025 My Hayes HOUSE FURNISHINGS SUPERVISOR-INSURANCE BILLER LAB - CHEMISTRY ORDERABL ES Final Result OTHER LAB * XR Chest 2Vw (06/29/2025) Anatomical Region Laterality Modality Chest Other 06/29/2025 My Hayes APRN-INSURANCE BILLER DIAGNOSTIC IMAGING ORDER DANNY Final Result * EKG 12-Lead (06/29/2025) 06/29/2025 My Hayes APRN-INSURANCE BILLER ECG ORDERABLES Final Re sult from Last 3 Months Insurance MEDICAID [facility] MEDICAID [facility] [place] Care Teams Board Stacker Relationship Specialty Start Date End Date Nay Sahu MD [address] [place], [place] [phone] PCP - General Pediatrics 12/04/22
--- OUTSIDE RECORDS SUMMARY | 2025-08-03 08:53 | XMS_ITS | Encounter Summary ---
Author Organization [facility] Address [address] [place] [address] Care Team Providers Care Customer Supply Coordinator Name Role Phone Nay Sahu MD Primary Care Provider [phone] Reason for Visit * Reason Onset Date Comments Appointment 06/15/2025 Encounter Details Date Type Department Care Team (Late st Contact Info) Description 06/15/2025 Telephone [facility] Weight Management Services [address] [place] [address] Fatou Starks MD [address] [place] [address] Appointment Social History Tobacco Use Types Packs/Day Years Used Date Smoking Tobacco: Never Smokeless Tobacco: Never Alcohol Use Standard Drinks/Week Comments Not Currently 0 (1 standard drink = 0.6 oz pur e alcohol) AUDIT-C Answer Date Recorded Q1: How often do you have a drink containing alcohol? Never 05/15/2023 Q2: How many drinks containi ng alcohol do you have on a typical day when you are drinking? Patient does not drink Q3: How often do you have si x or more drinks on one occasion? Never 05/15/2023 Comments Unknown Sex and Gender Information Value Date Recorded Sex Assigned at Not on file Legal Sex Female 11:58 AM ELECTRIC SPOT WELDER Gender Identity Not on file Sexual Orientation Not on file documented as of this encounter Miscellaneous Notes * Telephone Encounter - Magali Chaudhari CMA - 06/18/2025 11:39 AM CDT Lm for Caitlyn to call me back to schedule her BIV apt. I also sent my chart message yesterday 06/17/25 * Telephone Encounter - Magali Chaudhari CMA - 06/15/2025 10:00 AM CDT Attempted to call Caitlyn, to schedule BIV for 06/24/25 or any after. N/A, no VM set up, cannot leave message documented in this encounter Plan of Treatment Upcoming Encounters Date Type Department Care Team (Late st Contact Info) Description 08/10/2025 3:00 PM ELECTRIC SPOT WELDER Office Visit [facility] Weight Management Services [address] [place] [address] 08/11/2025 11:00 AM ELECTRIC SPOT WELDER Office Visit [facility] Weight Management Services [address] [place] [address] Tita Mcdaniel, CURB WORKER-APPELLATE CONFEREE [address] [place] [address] 08/11/2025 11:30 AM ELECTRIC SPOT WELDER Office Visit [facility] Weight Management Services [address] [place] [address] 09/22/2025 11:00 AM ELECTRIC SPOT WELDER Office Visit [facility] Weight Management Services [address] [place] [address] 09/22/2025 11:30 AM ELECTRIC SPOT WELDER Office Visit [facility] Weight Management Services [address] [place] [address] My Hayes, CURB WORKER-APPELLATE CONFEREE [address] [place] [address] documented as of this encounter Visit Diagnoses Not on filedocumented in this encounter Care Teams Customer Supply Coordinator Relationship Specialty Start Date End Date Nay Sahu MD [address] [place] [phone] PCP - General Pediatrics 12/04/22 documented as of this encounter
== END 2025-08-03 09:03 | disposition home or self-care (01) ==
PROVIDERS: Emergency Provider Registered Nurse
DX: J02.0 Streptococcal pharyngitis (principal)
CPT/HCPCS: 87880; 99213; G0463